=== PATIENT | male | born 1960 | race Caucasian/White ===

== ENCOUNTER 2017-04-07 12:33 | Emergency (ER) | payer OTHER ==
[2017-04-07 13:02] VITALS: RESP 16; O2SAT 96
--- NOTE | 2017-04-07 13:24 | CPEKG ---
Heart Rate: 60 RR Interval: 1000 P-R Interval: 192 QRSD Interval: 78 QT Interval: 392 QTC Interval: 392 P Burton: 82 QRS Burton: -3 T Wave Burton: 52 EKG Severity - NORMAL ECG - EKG Impression: SINUS RHYTHM Electronically Signed By: Javier Contreras 07-Apr-2017 14:47:37
[2017-04-07 13:53] LABS: % IMMATURE GRANULYOCYTES 0.2 % (0.0-1.1); ABSOLUTE IMMATURE GRANULOCYTES 0.01 10^3/uL (0.00-0.10); ADD DIFF? NO; ADD MORPH? NO; ADD SCAN? NO; ATYPICAL LYMPHOCYTE FLAG 10 (0-99); FRAGMENT RBC FLAG 0 (0-99); HEMATOCRIT 46.5 % (40.0-51.0); HEMOGLOBIN 16.6 g/dL (13.7-17.5); LEFT SHIFT FLG 0 (0-99); LIPEMIA HEMOLYSIS FLAG 90 (0-99); MEAN CELL HEMOGLOBIN 30.5 pg (27.9-34.1); MEAN CELL HEMOGLOBIN CONCENTR. 35.7 g/dL (32.4-36.7); MEAN CELL VOLUME 85.3 fL (81.5-99.8); MEAN PLATELET VOLUME 10.9 fL (8.7-11.7); PLATELET CLUMPS FLAG 0 (0-99); PLATELET COUNT 235 10^3/uL (150-400); RED BLOOD CELL COUNT 5.45 10^6/uL (4.40-6.38); RED CELL DISTRIBUTION WIDTH 12.7 % (11.5-15.2)
[2017-04-07 14:28] LABS: ALANINE AMINOTRANSFERASE 34 IU/L (21-72); ALBUMIN 4.2 g/dL (3.5-5.0); ALKALINE PHOSPHATASE 75 IU/L (38-126); ANION GAP 13 mEq/L (8-16); ASPARTATE AMINOTRANSFERASE 21 IU/L (17-59); BILIRUBIN,TOTAL 1.2 mg/dL (0.1-1.4); CALCIUM 9.2 mg/dL (8.5-10.4); CARBON DIOXIDE 22 mEq/l (22-31); CHLORIDE 104 mEq/L (97-110); CREATININE 1.1 mg/dL (0.7-1.3); GLOMERULAR FILTRATION RATE > 60; GLUCOSE 79 mg/dL (70-100); POTASSIUM 4.2 mEq/L (3.5-5.2); SODIUM 139 mEq/L (134-144); TOTAL PROTEIN 6.2 g/dL (6.3-8.2)
--- NOTE | 2017-04-07 14:48 | EDPHY ---
H & P Time Seen by Provider: 04/07/17 13:16 HPI/ROS: This patient complains heart palpitations and some paresthesias to his arms. For long period of time this patient is take in a small dose of Ativan as needed for insomnia he. He explains that he typically takes 0.25 mg to a 0.5 mg at bedtime to 3 times per week if needed for insomnia but he has noticed in association with some heart palpitations described as a extra beats intermittently that he can feel in the days after he takes Ativan. He just recently noted this association so he did not take the Ativan last night and he has not had heart palpitations today though he did had increased palpitations over the past 2 weeks while taking more Ativan for insomnia. Today he developed bilateral hand tingling that he has not had before and was concerned by the combination of his tingling and paresthesias and presented requesting an EKG to make sure that he did have a significant cardiac abnormality/[place]. ROS: Constitutional: No fevers or chills. No other complaints ENT: No complaints Neuro: No focal weakness. No numbness when he touches his hands. He no other neuro symptoms Besides what is mentioned in HPI Pulmonary: No dyspnea or pleuritic pain. Cardiovascular- no chest pain. No racing heart. No lower extremity swelling or calf pain. No lightheadedness. : No complaints Integumentary: No skin rash. Endocrine: No diaphoresis or other complaints 10 point ROS is otherwise negative Smoking Status: Never smoked Physical Exam: General Appearance: Alert, no distress. Eyes: Pupils equal and round no pallor or injection. ENT, Mouth: Mucous membranes moist. Neck: Nontender-no change in hand tingling with movement of his neck. Back: Nontender Respiratory: There are no retractions, lungs are clear to auscultation. Cardiovascular: Regular rate and rhythm. Gastrointestinal: Abdomen is soft and nontender, no masses, bowel sounds normal. Neurological: GCS 15. Despite paresthesias in his hands he maintains normal light touch sensation throughout bilateral upper extremities 5/5 strength throughout upper and lower extremities and 2+ symmetric patellar and Achilles DTRs bilaterally. Skin: Warm and dry, no rashes. Musculoskeletal: Neck is supple nontender. Extremities are symmetrical, full range of motion. Psychiatric: Mildly anxious. Otherwise normal mood and affect DIFFERENTIAL DIAGNOSIS: After history and physical exam differential diagnosis was considered for anxiety, hyperventilation, mi, metabolic abnormalities, thyroid disease, radiculopathy, thoracic outlet syndrome Constitutional: Initial Vital Signs Temperature (C) 36.6 C 04/07/17 12:40 Heart Rate 64 04/07/17 12:40 Respiratory Rate 16 04/07/17 12:40 Blood Pressure 125/88 H 04/07/17 12:40 O2 Sat (%) 96 04/07/17 12:40 O2 Delivery Mode Room Air Allergies/Adverse Reactions: ketorolac tromethamine [From Toradol] Allergy (Intermediate, Verified 04/07/17 13:03) ondansetron HCl [From Zofran] Allergy (Verified 04/07/17 13:03) Penicillins Allergy (Verified 04/07/17 13:03) Home Medications: Medication Instructions Recorded Bupropion HCl [Wellbutrin XL 300mg] 150 mg 01/27/13 Lorazepam PRN 04/07/17 Propranolol HCl [Inderal 10mg (*)] 10 - 20 mg PO BID PRN #20 tab 04/07/17 MDM/Departure - MDM Diagnostics: 12 lead EKG performed at 1:22 p.m. Indication arm paresthesias, rule out coronary syndrome Sinus rhythm at 60 in this EKG performed at 1:22 p.m. Intervals: Normal throughout [place]: Normal throughout Overall assessment: Normal EKG ED Course/Re-evaluation: I counseled the patient regarding his normal labs, normal EKG. Encouraged him to follow up with Cardiology for furth workup but has no significant ectopy here and no red flag findings on workup. No clinical evidence to suggest DVT or other complicating factors. Ice suspect that he has anxiety with mild hyperventilation causing his paresthesias. - Depart Disposition: Home, Routine, Self-Care Clinical Impression: Paresthesia of both hands, Heart palpitations, Anxiety Condition: Good Instructions: Paresthesia (ED) Additional Instructions: Diagnosis: Arm paresthesias 2. Heart palpitations Plan: Drink plenty fluids Hold the lorazepam Propranolol for anxiety if needed. Call [facility] to arrange follow-up appointment for your heart palpitations Call the neurologist-Dr. Pickering for follow-up if he have any ongoing paresthesias. Return for any significant worsening Prescriptions: Propranolol HCl [Inderal 10mg (*)] 10 - 20 mg PO BID PRN #20 tab PRN Reason: Anxiety Referrals: Rayshawn Lomeli MD [Primary Care Provider] - As per Instructions Erik Contreras MD [Medical Doctor] - As per Instructions Rick Pickering MD [Medical Doctor] - As per Instructions
[2017-04-07 15:12] VITALS: BP 114/78; PULSE 63; TEMP 98.4
== END 2017-04-07 15:09 | disposition home or self-care (01) ==
LOC: CED 12:33
DX: R00.2 Palpitations (principal); F41.9 Anxiety disorder, unspecified; R20.2 Paresthesia of skin
CPT/HCPCS: 80053-PO; 84443-PO; 85025-PO

== ENCOUNTER → 2017-04-20 | Outpatient (CLI) | payer OTHER | LOC: CIMAGING 07:07 | PROVIDERS: ATTEND Physician Assistant | DX: R10.13 Epigastric pain (principal) | CPT/HCPCS: 76700-PO ==

== ENCOUNTER → 2017-05-18 | Outpatient (CLI) | payer OTHER | LOC: FIMAGING 09:42 | PROVIDERS: ATTEND Internal Medicine | DX: R07.2 Precordial pain (principal) ==

== ENCOUNTER → 2017-05-29 | Outpatient (CLI) | payer OTHER | LOC: FIMAGING 09:19 | PROVIDERS: ATTEND Physician Assistant | DX: K21.9 Gastro-esophageal reflux disease without esophagitis (principal) ==

== ENCOUNTER → 2018-07-22 | Outpatient (CLI) | payer OTHER | LOC: FIMAGING 08:24 | PROVIDERS: ATTEND Internal Medicine Gastroenterology | DX: R10.13 Epigastric pain (principal) | CPT/HCPCS: 78227; A9537 ==

== ENCOUNTER → 2018-08-07 | Outpatient (CLI) | payer OTHER ==
[~2018-08-07] MED LIST: IOPAMIDOL (ISOVUE-300) 100 ML BTL ONE
== END ==
LOC: FIMAGING 07:44
DX: K65.4 Sclerosing mesenteritis (principal)
CPT/HCPCS: Q9967